=== PATIENT | male | born 1965 | race Caucasian/White ===

== ENCOUNTER 2018-09-21 19:39 | Emergency (ER) | payer OTHER ==
[2018-09-21 20:12] LABS: Absolute Lymphocytes (CBC) 2.5 K/uL (0.7-4.9); Absolute Monocytes 0.8 K/uL (0.1-1.3); Absolute Neutrophil 4.7 K/uL (1.8-8.0); Basophils % 1.3 % (0-1.3); Eosinophils % 1.4 % (0-4.4); Hematocrit 41.8 % (39.6-49.0); Lymphocytes % 30.6 % (15.3-44.8); MCH 28.5 pg (27.0-35.0); MCV 85.2 fL (80-100); MPV 8.6 fL (7.6-11.3); Monocytes % 9.5 % (3.3-12.3); RBC Red Blood Cell Count 4.91 M/uL (4.33-5.43)
[2018-09-21 20:18] LABS: Protime INR 1.01
[2018-09-21 20:26] LABS: ALT/SGPT 65 U/L (12-78); AST/SGOT 35 U/L (15-37); Albumin 3.8 g/dL (3.4-5.0); Alkaline Phosphatase 89 U/L (45-117); BUN Blood Urea Nitrogen 12 mg/dL (7-18); Bicarbonate 24 mmol/L (21-32); Bilirubin Direct 0.1 mg/dL (0-0.2); Bilirubin Total 0.5 mg/dL (0.2-1.0); Glucose Level 93 mg/dL (74-106); Magnesium 2.1 mg/dL (1.8-2.4); NT PRO-BNP 76 pg/mL (<125); Protein, Total 7.3 g/dL (6.4-8.2); Sodium Level 139 mmol/L (136-145); Troponin (Emerg Dept Use Only) < 0.02 ng/mL (0.0-0.045)
[2018-09-21] MEDS ORDERED: KETOROLAC 30 MG/ML INJ ONE (20:31)
--- NOTE | 2018-09-21 20:38 | RAD REPORT ---
EXAM DESCRIPTION: RAD - Chest Single View - 09/21/2018 7:59 pm CLINICAL HISTORY: Chest pain COMPARISON: None. TECHNIQUE: AP portable chest image was obtained 1950 hours . FINDINGS: There is a very large 75% or greater right-sided pneumothorax. There is complete or near c omplete atelectasis of the right side lobes. Trachea remains midline. No tension pneumothorax finding s. Left lung field is clear. No left-sided pneumothorax. Heart and vasculature are normal. No pleural fluid collection. No acute bony abnormality seen. No acute aortic findings suspected. Findings were telephoned to Glenn in the emergency department 8:33 p.m.. IMPRESSION: Very large 75% or greater right-sided pneumothorax with complete or near complete atelec tasis of all right-side lobes. No midline shift or tracheal deviation. Tension pneumothorax not suspected.
[2018-09-21] MEDS ORDERED: NA CHLORIDE 0.9% 1,000 ML ONE (20:54)
[2018-09-21] MEDS ORDERED: ONDANSETRON 4 MG/2 ML VIAL ONE (20:54)
[2018-09-21] MEDS ORDERED: MORPHINE 4 MG/ML SYR ONE ×2 (20:54→21:17)
[2018-09-21] MEDS ORDERED: LIDOCAINE 1% MPF 30 ML VIAL ONE (21:14)
[2018-09-21] MEDS ORDERED: MORPHINE 2 MG/ML SYR ONE (21:57)
--- NOTE | 2018-09-21 22:12 | RAD REPORT ---
EXAM DESCRIPTION: RAD - Chest Single View - 09/21/2018 9:53 pm CLINICAL HISTORY: Pneumothorax, right-sided chest tube placement COMPARISON: September 21 TECHNIQUE: AP portable chest image was obtained 2146 hours . FINDINGS: Large bore chest tube has been placed on the right. The very large pneumothorax has been c leared. No measurable pneumothorax seen. On portable imaging, an anterior pneumothorax can be occult. No measurable pleural fluid collection. No pulmonary edema or acute lung parenchymal process. Heart and vasculature are normal. No pleural fluid. No mass or acute rib finding. No acute aortic fi ndings suspected. IMPRESSION: Right lung field has re-expanded following placement of chest tube. No measurable pneumothorax. Anterior pneumothorax can be missed on portable imaging.
[2018-09-21] MEDS ORDERED: FENTANYL CITR 100 MCG/2 ML ONE (22:37)
--- NOTE | 2018-09-21 22:39 | ER ---
Nurse's Notes [facility] Name: Michael Sarmiento Age: 53 yrs Sex: Male : 1965 Arrival Date: 09/21/2018 Time: 19:40 Bed 2 Private MD: Diagnosis: Pneumothorax, unspecified Presentation: 09/21 19:40 Presenting complaint: EMS states: patient was doing push ups and he felt sudden onset mg2 of midsternal chest pain radiating to the left chest with shortness of breath. Transition of care: PD. Onset of symptoms was September 21, 2018. Risk Assessment: Do you want to hurt yourself or someone else? Patient reports no desire to harm self or others. Initial Sepsis Screen: Does the patient meet any 2 criteria? No. Patient's initial sepsis screen is negative. Does the patient have a suspected source of infection? No. Patient's initial sepsis screen is negative. Care prior to arrival: Medication(s) given: ASA, 325 mg, Nitroglycerin, x 1. 19:40 Method Of Arrival: Law Enforcement: hermes KUMARI mg2 19:40 Acuity: YOHANA 3 mg2 Historical: - Allergies: 19:53 No Known Allergies; mg2 - Home Meds: 19:53 None [Active]; mg2 - PMHx: 19:53 None; mg2 - PSHx: 19:53 leg, abdominal. back and neck surgery; mg2 - Immunization history:: Flu vaccine is up to date. - Social history:: Smoking status: Patient/guardian denies using tobacco, Patient/guardian denies using alcohol, street drugs, IV drugs. - Ebola Screening: : No symptoms or risks identified at this time. Screenin:55 Abuse screen: Denies threats or abuse. Denies injuries from another. Nutritional mg2 screening: No deficits noted. Tuberculosis screening: No symptoms or risk factors identified. Fall Risk IV access (20 points). Assessment: 19:55 General: Appears in no apparent distress. comfortable, Behavior is calm, cooperative. mg2 Pain: Complains of pain in chest Pain radiates to left chest. Neuro: Level of Consciousness is awake, alert, obeys commands, Oriented to person, place, time, situation. Cardiovascular: Capillary refill < 3 seconds Patient's skin is warm and dry. Chest pain is located in chest wall radiates to left chest. Respiratory: Reports shortness of breath on exertion since today Airway is patent Respiratory effort is even, unlabored, Respiratory pattern is regular, symmetrical. GI: No signs and/or symptoms were reported involving the gastrointestinal system. : No signs and/or symptoms were reported regarding the genitourinary system. EENT: No signs and/or symptoms were reported regarding the EENT system. Derm: Skin is intact, is healthy with good turgor, Skin is pink, warm \T\ dry. normal. Musculoskeletal: No signs and/or symptoms reported regarding the musculoskeletal system. 20:50 Reassessment: Patient appears in no apparent distress at this time. came from pad [address] oviedo and mike RN for chest tube insertion. placed on bed comfortably. prepare for the procedure of chest tube insertion aseptically. 22:10 Reassessment: Patient appears in no apparent distress at this time. readjusted chest rr5 tube by dr. oviedo. 23:00 Reassessment: Patient appears in no apparent distress at this time. Patient and/or rr5 family updated on plan of care and expected duration. Pain level reassessed. no complaints made. Patient states feeling better. Patient states symptoms have improved. 23:09 Reassessment: Reassessment: Patient appears in no apparent distress at this time. rr5 Patient and/or family updated on plan of care and expected duration. Pain level reassessed. awaiting for EMS to arrive Patient states feeling better. Patient states symptoms have improved. 09/22 00:40 Reassessment: Patient appears in no apparent distress at this time. Patient and/or rr5 family updated on plan of care and expected duration. Pain level reassessed. endorsed to [facility] vitally stable. Patient states feeling better. Patient states symptoms have improved. Vital Signs: 09/21 19:45 BP 104 / 70; Pulse 72; Resp 18; Temp 97.9; Pulse Ox 100% ; Weight 84.37 kg; Height 5 mg2 ft. 10 in. (177.80 cm); Pain 8/10; 21:07 BP 133 / 86; Pulse 63; Resp 23; Pulse Ox 99% on 15% Non-rebreather mask; rr5 21:11 BP 133 / 86; Pulse 59; Resp 20; Pulse Ox 100% on Non-rebreather mask; mt 22:20 BP 131 / 85; Pulse 62; Resp 18; Pulse Ox 100% on R/A; mt 22:44 BP 123 / 90; Pulse 61; Resp 20; Temp 97.9; Pulse Ox 98% on 2 lpm NC; rr5 23:45 BP 110 / 70; Pulse 69; Resp 17; Pulse Ox 98% on R/A; rr5 09/22 00:40 BP 103 / 65; Pulse 70; Resp 18; Pulse Ox 99% on R/A; rr5 09/21 19:45 Body Mass Index 26.69 (84.37 kg, 177.80 cm) mg2 ED Course: 09/21 19:40 Patient arrived in ED. mg2 19:40 Luis Fernando Oviedo MD is Attending Physician. tw4 19:45 Triage completed. mg2 19:54 Jr Sánchez, DORETHA is Primary Nurse. mg2 19:54 No provider procedures requiring assistance completed. Maintain EMS IV. Dressing mg2 intact. Good blood return noted. Site clean \T\ dry. Gauge \T\ site: 20 \T\ LAC. IV. 19:54 Patient has correct armband on for positive identification. municipal court judge on. Pulse mg2 ox on. NIBP on. 19:59 XRAY Chest (1 view) In Process Unspecified. EDMS 20:07 Arm band placed on. mg2 20:24 Radiology exam delayed due to lab results not completed at this time. (BUN/Creatinine). nj 20:48 Radiology exam delayed due to doctor is seeing patient at this time. nj 21:08 Radiology exam delayed due to pt is getting a chest tube at this time. nj 21:20 Assist provider with chest tube insertion with 28 Fr. level 12 in right lateral Tray rr5 was set up. Attached to pleur-e-vac. Chest tube inserted by Luis Fernando Oviedo MD Placement verified by CXR, fluctuation of fluid, return of air, Dressed with Vaseline gauze, foam tape, 4X4s, Patient tolerated well. 21:40 initiated transfer with [facility] transfer center. spoke with Rayray Petersen. gm 21:40 \T\2140 nurse Elizabeth spoke with Rayray Petersen. gm 21:52 Chest Single View XRAY In Process Unspecified. EDMS 22:10 repeat chest xray done.readjusted CTT to level [address] oviedo aseptically. rr5 22:22 Chest Single View XRAY In Process Unspecified. EDMS 22:28 doc to doc was done with dr Alcala . gm 22:30 Oxygen administration via nasal cannula \T\ 2L/min Response to oxygen therapy: symptoms rr5 improved. 23:07 Patient transferred, IV remains in place. intact, bleeding controlled, No rr5 redness/swelling at site. Pressure dressing applied. 23:15 [id number] spoke with Miley at the transport center and she said [facility] will gm arrive in 1 hour. 09/22 01:03 Primary Nurse role handed off by Jr Sánchez, DORETHA rr5 01:03 Rj Dai, DORETHA is Primary Nurse. rr5 Administered Medications: 09/21 20:26 Drug: TORadol 30 mg Route: IVP; Site: left forearm; mg2 09/22 00:30 Follow up: Response: No adverse reaction rr5 09/21 21:00 Drug: Zofran 4 mg Route: IVP; Site: left forearm; rr5 09/22 00:30 Follow up: Response: No adverse reaction rr5 09/21 21:00 Drug: NS 0.9% 1000 ml Route: IV; Rate: 1 bolus; Site: left forearm; rr5 22:00 Follow up: Response: No adverse reaction; IV Status: Completed infusion; IV Intake: rr5 1000ml 21:02 Drug: morphine 4 mg Route: IVP; Site: left forearm; rr5 09/22 00:30 Follow up: Response: No adverse reaction rr5 09/21 21:05 Drug: morphine 4 mg Route: IVP; Site: left forearm; rr5 09/22 00:30 Follow up: Response: No adverse reaction rr5 09/21 21:07 Drug: morphine 4 mg Route: IVP; Site: left forearm; rr5 09/22 00:30 Follow up: Response: No adverse reaction rr5 09/21 22:10 Drug: morphine 2 mg Route: IVP; Site: left forearm; rr5 09/22 00:30 Follow up: Response: No adverse reaction rr5 09/21 22:30 Drug: fentaNYL (PF) 50 mcg Route: IVP; Site: left forearm; rr5 09/22 00:30 Follow up: Response: No adverse reaction rr5 00:45 Drug: fentaNYL (PF) 50 mcg Route: IVP; Site: left forearm; rr5 00:45 Follow up: Response: Other; admisnitered upon transfer rr5 Intake: 09/21 22:00 IV: 1000ml; Total: 1000ml. rr5 Outcome: 22:39 ER care complete, transfer ordered by . tw4 23:00 Transferred by ground EMS to [facility], Transfer form rr5 completed. Note: endorsed to kamila bolden and iliana of transfer center 23:00 Condition: stable rr5 23:00 Instructed on the need for transfer. 09/22 00:56 Patient left the ED. rr5 01:06 Patient left the ED. rr5 Signatures: Dispatcher [employer] EDMS Toro King, Luis Fernando Clemente mt, MD MD tw4 Jr Sánchez RN RN [facility] Rj Dai RN RN rr5 Crissy Garcia gm Corrections: (The following items were deleted from the chart) 09/21 20:48 20:37 Patient moved to NH via wheelchair. hebert ambrosio 09/22 00:00 09/21 23:09 Reassessment: rr5 rr5
--- NOTE | 2018-09-21 22:40 | EDPHYS ---
Physician Documentation [facility] Name: Michael Sarmiento Age: 53 yrs Sex: Male : 1965 Arrival Date: 09/21/2018 Time: 19:40 Bed 2 Private MD: ED Physician Luis Fernando Rodríguez HPI: 09/21 23:23 This 53 yrs old Male presents to ER via Law [employer] with complaints of tw4 Chest Pain, Shortness Of Breath. 23:23 The patient or guardian reports chest pain that is located primarily in the anterior tw4 chest wall, right. Onset: today. The pain does not radiate. Associated signs and symptoms: Pertinent positives: cough, Pertinent negatives: abdominal pain, diaphoresis, dizziness, headache, lower extremity pain, lower extremity swelling, lightheadedness. The chest pain is described as sharp. Duration: The patient or guardian reports a single episode. Severity of pain: At its worst the pain was moderate in the emergency department the pain is unchanged. The patient has not experienced similar symptoms in the past. Historical: - Allergies: 19:53 No Known Allergies; mg2 - Home Meds: 19:53 None [Active]; mg2 - PMHx: 19:53 None; mg2 - PSHx: 19:53 leg, abdominal. back and neck surgery; mg2 - Immunization history:: Flu vaccine is up to date. - Social history:: Smoking status: Patient/guardian denies using tobacco, Patient/guardian denies using alcohol, street drugs, IV drugs. - Ebola Screening: : No symptoms or risks identified at this time. ROS: 23:23 Constitutional: Negative for fever, chills, and weight loss, Eyes: Negative for injury, tw4 pain, redness, and discharge, Respiratory: Negative for shortness of breath, cough, wheezing, and pleuritic chest pain, Abdomen/GI: Negative for abdominal pain, nausea, vomiting, diarrhea, and constipation, Back: Negative for injury and pain, MS/Extremity: Negative for injury and deformity, Skin: Negative for injury, rash, and discoloration, Neuro: Negative for headache, weakness, numbness, tingling, and seizure. 23:23 Cardiovascular: Positive for chest pain, Negative for edema, orthopnea, palpitations. Exam: 23:23 Constitutional: This is a well developed, well nourished patient who is awake, alert, tw4 and in no acute distress. Head/Face: Normocephalic, atraumatic. Chest/axilla: Normal chest wall appearance and motion. Nontender with no deformity. No lesions are appreciated. Cardiovascular: Regular rate and rhythm with a normal S1 and S2. No gallops, murmurs, or rubs. Normal PMI, no JVD. No pulse deficits. Respiratory: Lungs have equal breath sounds bilaterally, clear to auscultation and percussion. No rales, rhonchi or wheezes noted. No increased work of breathing, no retractions or nasal flaring. Abdomen/GI: Soft, non-tender, with normal bowel sounds. No distension or tympany. No guarding or rebound. No evidence of tenderness throughout. Back: No spinal tenderness. No costovertebral tenderness. Full range of motion. MS/ Extremity: Pulses equal, no cyanosis. Neurovascular intact. Full, normal range of motion. Neuro: Awake and alert, GCS 15, oriented to person, place, time, and situation. Cranial nerves II-XII grossly intact. Motor strength 5/5 in all extremities. Sensory grossly intact. Cerebellar exam normal. Normal gait. 09/22 04:31 ECG was reviewed by the Attending Physician. tw4 Vital Signs: 09/21 19:45 BP 104 / 70; Pulse 72; Resp 18; Temp 97.9; Pulse Ox 100% ; Weight 84.37 kg; Height 5 mg2 ft. 10 in. (177.80 cm); Pain 8/10; 21:07 BP 133 / 86; Pulse 63; Resp 23; Pulse Ox 99% on 15% Non-rebreather mask; rr5 21:11 BP 133 / 86; Pulse 59; Resp 20; Pulse Ox 100% on Non-rebreather mask; mt 22:20 BP 131 / 85; Pulse 62; Resp 18; Pulse Ox 100% on R/A; mt 22:44 BP 123 / 90; Pulse 61; Resp 20; Temp 97.9; Pulse Ox 98% on 2 lpm NC; rr5 23:45 BP 110 / 70; Pulse 69; Resp 17; Pulse Ox 98% on R/A; rr5 09/22 00:40 BP 103 / 65; Pulse 70; Resp 18; Pulse Ox 99% on R/A; rr5 09/21 19:45 Body Mass Index 26.69 (84.37 kg, 177.80 cm) mg2 Procedures: 09/21 23:23 Chest tube insertion: the site was prepped using Betadine, Tube size: a 28 mongolian chest tw4 tube was inserted, introduced in right lateral chest wall, in the right lateral anterior chest, to pleur-e-vac, dressed with vaseline gauze, foam tape, 4x4s, the patient tolerated the procedure well. MDM: 19:41 Patient medically screened. tw4 23:23 Data reviewed: vital signs, nurses notes. Data interpreted: Pulse oximetry: tw4 Interpretation: normal. Test interpretation: by ED physician or midlevel provider: ECG, plain radiologic studies. Counseling: I had a detailed discussion with the patient and/or guardian regarding: the historical points, exam findings, and any diagnostic results supporting the discharge/admit diagnosis. 09/22 04:31 Differential diagnosis: abnormal EKG, acute myocardial infarction, acute pericarditis, tw4 pneumonia, pneumothorax, pulmonary embolus, stable angina, thoracic aortic disection, unstable angina. 09/21 19:41 Order name: Basic Metabolic Panel [facility] 09/21 19:41 Order name: CBC with Diff tw 09/21 19:41 Order name: LFT's [facility] 09/21 19:41 Order name: Magnesium [facility] 09/21 19:41 Order name: NT PRO-BNP [facility] 09/21 19:41 Order name: PT-INR [facility] 09/21 19:41 Order name: Troponin (emerg Dept Use Only) [facility] 09/21 19:41 Order name: XRAY Chest (1 view) [facility] 09/21 21:41 Order name: Chest Single View XRAY rr5 09/21 22:17 Order name: Chest Single View XRAY gm 09/21 19:41 Order name: EKG; Complete Time: 19:42 tw4 09/21 19:41 Order name: Cardiac monitoring; Complete Time: 19:54 [facility] 09/21 19:41 Order name: EKG - Nurse/Tech; Complete Time: 19:54 4 09/21 19:41 Order name: IV Saline Lock; Complete Time: 19:54 [facility] 09/21 19:41 Order name: Labs collected and sent; Complete Time: 19:54 [facility] 09/21 19:41 Order name: O2 Per Protocol; Complete Time: 19:54 tw4 09/21 19:41 Order name: O2 Sat Monitoring; Complete Time: 19:54 tw4 09/21 21:47 Order name: Misc. Order; Complete Time: 21:47 mt EC:31 Rate is 70 beats/min. Rhythm is regular. QRS [place] is Normal. MS interval is normal. QRS tw4 interval is normal. QT interval is normal. No Q waves. T waves are Normal. Clinical impression: NSR w/ Non-specific ST/T Changes. Interpreted by me. Reviewed by me. Administered Medications: 09/21 20:26 Drug: TORadol 30 mg Route: IVP; Site: left forearm; mg2 09/22 00:30 Follow up: Response: No adverse reaction rr5 09/21 21:00 Drug: Zofran 4 mg Route: IVP; Site: left forearm; rr5 09/22 00:30 Follow up: Response: No adverse reaction rr5 09/21 21:00 Drug: NS 0.9% 1000 ml Route: IV; Rate: 1 bolus; Site: left forearm; rr5 22:00 Follow up: Response: No adverse reaction; IV Status: Completed infusion; IV Intake: rr5 1000ml 21:02 Drug: morphine 4 mg Route: IVP; Site: left forearm; rr5 09/22 00:30 Follow up: Response: No adverse reaction rr5 09/21 21:05 Drug: morphine 4 mg Route: IVP; Site: left forearm; rr5 09/22 00:30 Follow up: Response: No adverse reaction rr5 09/21 21:07 Drug: morphine 4 mg Route: IVP; Site: left forearm; rr5 09/22 00:30 Follow up: Response: No adverse reaction rr5 09/21 22:10 Drug: morphine 2 mg Route: IVP; Site: left forearm; rr5 09/22 00:30 Follow up: Response: No adverse reaction rr5 09/21 22:30 Drug: fentaNYL (PF) 50 mcg Route: IVP; Site: left forearm; rr5 09/22 00:30 Follow up: Response: No adverse reaction rr5 00:45 Drug: fentaNYL (PF) 50 mcg Route: IVP; Site: left forearm; rr5 00:45 Follow up: Response: Other; admisnitered upon transfer rr5 Disposition: 09/21/18 22:39 Transfer ordered to [facility] Diagnosis is Pneumothorax, unspecified. - Reason for transfer: Higher level of care. - Accepting physician is Dr Alcala. - Condition is Stable. - Problem is new. - Symptoms have improved. Signatures: Dispatcher [employer] EDUT SternHallie Luis Fernando Traylor MD MD tw4 Jr Sánchez, DORETHA RN [facility] Rj Dai RN RN rr5 Corrections: (The following items were deleted from the chart) 09/21 22:30 20:19 Chest For PE Angio+CT.RAD.BRZ ordered. [facility] 09/22 00:56 09/21 22:39 09/21/2018 22:39 Transfer ordered to [facility] Diagnosis is rr5 Pneumothorax, unspecified. Reason for transfer: Higher level of care. Accepting physician is Dr Alcala. Condition is Stable. Problem is new. Symptoms have improved. tw4 09/22 01:06 00:56 09/21/2018 22:39 Transfer ordered to [facility] Diagnosis is Pneumothorax, rr5 unspecified. Reason for transfer: Higher level of care. Accepting physician is Dr Alcala. Condition is Stable. Problem is new. Symptoms have improved. rr5
--- NOTE | 2018-09-22 07:48 | RAD REPORT ---
EXAM DESCRIPTION: RAD - Chest Single View - 09/21/2018 10:22 pm CLINICAL HISTORY: Pneumothorax, chest tube repositioning COMPARISON: September 21 imaging TECHNIQUE: AP portable chest image was obtained 2209 hours . FINDINGS: Chest tube is in the right-side of the chest. Chest tube enters the fourth are 5 right lat eral inner costal space directed superiorly. The chest tube then extends inferiorly with the tip in t he lateral right chest near the entry site. There may be an acute bend or kink of the tubing in the r ight apex. Minimal costophrenic angle blunting is present. Right lung field is similarly expanded to the initial post tube placement film. Anterior and minimal apical pneumothorax could still be present. Portable supine imaging is limited. If present, the pneumothorax is likely less than 10%. Right costophrenic angle blunting is present. Right hemithorax volume remains reduced relative to the left. No new or progressive left lung field finding. Heart and vasculature are normal. No large pleu ral effusion. No acute bony abnormality seen. No acute aortic findings suspected. IMPRESSION: Chest tube replacement or repositioning as detailed. From a portable supine projection, an acute bend or kink of the tubing near the apex cannot be excluded. No measurable pneumothorax is identifiable. Right hemithorax volume remains reduced. On a portable supine exam, a small anterior pneumothorax or minimal right apex pneumothorax could sti ll be present.
--- NOTE | 2018-09-22 09:24 | EKG ---
Test Date: 2018-09-21 Test Time: 19:41:56 Fire Engine Operator: PAUL MEASUREMENT RESULTS: Intervals: Rate: 70 NE: 158 QRSD: 76 QT: 390 QTc: 421 Electra: P: 82 NE: 158 QRS: -55 T: 19 INTERPRETIVE STATEMENTS: Normal sinus rhythm Left axis deviation Inferior infarct, age undetermined Abnormal ECG No previous ECG available for comparison Electronically Signed On 09-22-18 09:23:42 INCUBATOR TENDER by Carson Ramírez
== END 2018-09-22 01:06 | disposition short-term general hospital (02) ==
LOC: ER 19:39
PROC: 0W9930Z Drainage of Right Pleural Cavity with Drainage Device, Percutaneous Approach (ICD-10-PCS; principal; 2018-09-22)
DX: J93.9 Pneumothorax, unspecified (principal)
CPT/HCPCS: 36415; 71045; 80048; 80076; 83735; 83880; 84484; 85025; 85610; 93005; 96361; 96374; 96375; 99291; J2270; J2405; J3010; J7030